=== PATIENT | male | born 1965 ===

== ENCOUNTER 2018-10-02 12:13 | Emergency (ER) | payer OTHER ==
[2018-10-02 12:43] VITALS: RESP 18; O2SAT 98
--- NOTE | 2018-10-02 13:25 | ED PDOC ---
HPI: Psych/Substance Abuse Time Seen by Provider: 10/02/18 12:41 Chief Complaint (Nursing): Alcohol Ingestion Chief Complaint (Provider): Trouble Breathing History Per: Patient Onset/Duration Of Symptoms: Mins (just prior to arrival) Current Symptoms Are (Timing): Gone Now Additional Complaint(s): 53 year old male presents to the ED for evaluation s/p a friend called 911 for him after he was complaining of having trouble breathing. Since, patient states the dyspnea has completely resolved. Additionally, patient has not taken his HTN medication in over two months, but does not know the name of it. Otherwise, patient denies drinking alcohol, chest pain, back pain, headache, and weakness. PMD: none provided Against Medical Advice - AMA Patient Left Against Medical Advice: The patient declines further testing and monitoring to leave the Emergency Department. This action is against my medical advice. This decision was made with informed refusal. The patient was told that CT and monitoring is necessary. Explanation of the reasons why were discussed. The risks of leaving were explained to the patient and include, but are not limited to, worsening of known or currently unknown conditions, permanent disability and from undiagnosed or untreated conditions. The patient has the capacity to make this informed decision and understands my explanation of the current medical problem and risks of leaving. The patient voluntarily accepts these risks and signed an AMA form documenting our conversation. The patient was given the opportunity to ask questions and reconsider. The patient was encouraged to return to the Emergency Department at any time for further care. 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 Advised not to drive as there is still alcohol in his system. Pt. verbalized correct understanding of risks of leaving ED without proper testing. Pt. with steady, unassisted gait. No slurred speech. Clinically sober. Case d/w Dr. Mao who agrees with plan. Past Medical History Reviewed: Historical Data, Nursing Documentation, Vital Signs Vital Signs: Last Vital Signs Temp 97.5 F L 10/02/18 12:15 Pulse 86 10/02/18 12:43 Resp 18 10/02/18 12:43 BP 181/115 H 10/02/18 12:43 Pulse Ox 98 10/02/18 12:43 - Medical History PMH: HTN - Surgical History Surgical History: No Surg Hx - Family History Family History: States: Unknown Family Hx - Social History Current smoker - smoking cessation education provided: No Alcohol: Social Drugs: Denies - Allergies Allergies/Adverse Reactions: Allergies Allergy/AdvReac Type Severity Reaction Status Date / Time No Known Allergies Allergy Verified 10/02/18 12:15 Review of Systems ROS Statement: Except As Marked, All Systems Reviewed And Found Negative Cardiovascular: Negative for: Chest Pain Respiratory: Positive for: Other (trouble breathing) Musculoskeletal: Negative for: Back Pain Neurological: Negative for: Weakness, Headache Physical Exam - Reviewed Nursing Documentation Reviewed: Yes Vital Signs Reviewed: Yes - Physical Exam Appears: Positive for: No Acute Distress Head Exam: Positive for: ATRAUMATIC, NORMAL INSPECTION, NORMOCEPHALIC Skin: Positive for: Normal Color. Negative for: Rash Eye Exam: Positive for: Normal appearance ENT: Positive for: Normal ENT Inspection Neck: Positive for: Normal, Painless ROM, Supple Cardiovascular/Chest: Positive for: Regular Rate, Rhythm Respiratory: Positive for: Normal Breath Sounds. Negative for: Respiratory Distress Gastrointestinal/Abdominal: Positive for: Normal Exam, Soft. Negative for: Tenderness Back: Positive for: Normal Inspection Extremity: Positive for: Normal ROM (all extremities) Neurologic/Psych: Positive for: Alert, Oriented (x3), Other (slurred speech, but no alcohol on breath). Negative for: Motor/Sensory Deficits - Laboratory Results Result Diagrams: 10/02/18 13:30 10/02/18 13:40 - ECG O2 Sat by Pulse Oximetry: 98 (RA) Pulse Ox Interpretation: Normal Medical Decision Making Medical Decision Making: Time: 1256 Initial Impression: hypertension, etoh Initial Plan: --CT head without contrast --Alcohol serum --CMP --Drug screen --Trop I --CBC with differential --D Dimer --CXR --Catapres 0.1mg PO --Placed on registered nurse cardiac --Urinalysis --Accucheck Accucheck 94 Scribe Attestation: Documented by Lashawn Quiroga, acting as a scribe for Juan Manuel Sawyer PA-C. Provider Scribe Attestation: All medical record entries made by the Scribe were at my direction and personally dictated by me. I have reviewed the chart and agree that the record accurately reflects my personal performance of the history, physical exam, medical decision making, and the department course for this patient. I have also personally directed, reviewed, and agree with the discharge instructions and disposition. Disposition - Clinical Impression Clinical Impression: Alcohol intoxication, Hypertension, Left against medical advice, Dyspnea - Patient ED Disposition Is Patient to be Admitted: No - Disposition Disposition: Against Medical Advice Disposition Time: 16:10 Condition: FAIR Additional Instructions: RETURN TO ED IMMEDIATELY LEESA HURST, thank you for letting us take care of you today. Your provider was Ne Mao MD and you were treated for ETOH. The emergency medical care you received today was directed at your acute symptoms. If you were prescribed any medication, please fill it and take as directed. It may take several days for your symptoms to resolve. Return to the Emergency Department if your symptoms worsen, do not improve, or if you have any other problems. Please contact your doctor or call one of the physicians/clinics you have been referred to that are listed on the Patient Visit Information form that is included in your discharge packet. Bring any paperwork you were given at discharge with you along with any medications you are taking to your follow up visit. Our treatment cannot replace ongoing medical care by a primary care provider outside of the emergency department. Thank you for allowing the [facility] team to be part of your care today. If you had an X-Ray or CT scan: A Radiologist will review the ED reading if any change in treatment is needed we will contact you. If you had a blood, urine, or wound culture: It will take several days for the results, if any change in treatment is needed we will contact you. If you had an STI test: It will take 48 hours for the results. Please call after 1 week if you have not heard back. Instructions: Alcohol Use - When Is Drinking a Problem?, High Blood Pressure (DC), Shortness of Breath (Dyspnea) (DC) Forms: [employer] (Slovenian) Print Language: KAZAKH
[2018-10-02 13:50] LABS: EOS # 0.1 K/uL (0.0-0.7); EOS % 2.4 % (0.0-4.0); HEMOGLOBIN 12.1 g/dL (12.0-18.0); LYMPH # 0.9 K/uL (1.0-4.3); LYMPH % 25.4 % (20.0-40.0); MEAN CORPUSCULAR HEMOGLOBIN 31.1 pg (27.0-31.0); MEAN CORPUSCULAR HGB CONC 33.1 g/dL (33.0-37.0); MEAN PLATELET VOLUME 9.8 fl (7.2-11.7); MONO # 0.5 K/uL (0.0-0.8); MONO % 12.3 % (0.0-10.0); NEUT # 2.2 K/uL (1.8-7.0); NEUT % 58.9 % (50.0-75.0); RBC 3.88 Mil/uL (4.40-5.90); RED CELL DISTRIBUTION WIDTH 15.3 % (11.5-14.5); WHITE BLOOD COUNT 3.7 K/uL (4.8-10.8)
--- NOTE | 2018-10-02 13:50 | RAD ---
Date of service: 10/02/2018 HISTORY: SOB COMPARISON: No prior. FINDINGS: LUNGS: The lungs are well inflated. There is mild pulmonary venous congestion. No focal consolidation. PLEURA: No pleural effusions or pneumothorax. CARDIOVASCULAR: Mild cardiomegaly. No aortic atherosclerotic calcifications present. OSSEOUS STRUCTURES: Within normal limits for the patient's age. VISUALIZED UPPER ABDOMEN: Normal. OTHER FINDINGS: None. IMPRESSION: No active pulmonary disease.
[2018-10-02 14:08] LABS: ALB/GLOB RATIO 1.3 (1.0-2.1); ALBUMIN 4.3 g/dL (3.5-5.0); ALT/SGPT 52 U/L (21-72); AST/SGOT 110 U/L (17-59); BLOOD UREA NITROGEN 14 mg/dl (9-20); CALCIUM 9.1 mg/dL (8.4-10.2); GFR NON-AFRICAN AMERICAN > 60
[2018-10-02] MEDS ORDERED: Iodixanol 320 MG/ML 100 ML BOTTLE IV ONE (15:39)
[2018-10-02] MEDS ORDERED: Sodium Chloride 0.9% 50 ML IV ONE (15:40)
[2018-10-02 21:42] VITALS: BP 179/109; PULSE 98; TEMP 98.7
== END 2018-10-02 16:30 | disposition left against medical advice (07) ==
LOC: H.ER 12:13
DX: F10.129 Alcohol abuse with intoxication, unspecified (principal); I10 Essential (primary) hypertension; R06.00 Dyspnea, unspecified